=== PATIENT | female | born 1995 | race Caucasian/White ===

== ENCOUNTER 2017-08-04 00:18 | Emergency (ER) | payer OTHER ==
[~2017-08-04] VITALS: Ht 157.5 cm; Wt 45.4 kg
[2017-08-04 01:00] VITALS: BP 118/67
== END 2017-08-04 01:00 | disposition home or self-care (01) ==
LOC: M.ERS 00:18
DX: S90.851A Superficial foreign body, right foot, initial encounter (principal); X58.XXXA Exposure to other specified factors, initial encounter; Y93.89 Activity, other specified; Y92.89 Other specified places as the place of occurrence of the external cause; Y99.8 Other external cause status